=== PATIENT | female | born 1990 | race Caucasian/White ===

== ENCOUNTER → 2016-12-14 | Outpatient (REF) | payer BC | END | disposition home or self-care (01) | LOC: M SFHCLERA 16:53 | PROVIDERS: ATTEND Physician Assistant Medical | DX: J02.9 Acute pharyngitis, unspecified (principal) ==

== ENCOUNTER 2018-05-17 18:44 | Emergency (ER) | payer SELFPAY, BC ==
[2018-05-17 19:21] LABS: KETONE, URINE AUTO RFX NEGATIVE (NEGATIVE); MUCUS, URINE RFX SMALL (NEGATIVE); RBC, URINE AUTO RFX TNTC /HPF (0-3); SPECIFIC GRAVITY UR AUTO RFX 1.011 (1.002-1.035); SQUAM EPITHELIAL CELL UR AURFX 1 /HPF (0-6)
[2018-05-17 19:22] LABS: LEUKOCYTE ESTERASE UR AUTO RFX 3+ (NEGATIVE); NITRITE, URINE AUTO RFX POSITIVE (NEGATIVE); WBC, URINE AUTO RFX TNTC /HPF (0-3)
[2018-05-17] MEDS: KETOROLAC 30 MG/ML VIAL (J1885) IV (21:27)
[2018-05-17] MEDS: NS 1,000 ML IV (21:28)
[2018-05-17 21:30] LABS: BASO # 0.1 10^3/uL (0.0-0.2); BASO % 0.3 % (0.0-1.0); EOS % 0.1 % (0.0-3.0); HEMATOCRIT 44.4 % (36.0-47.0); HEMOGLOBIN 14.7 g/dl (12.0-15.5); IMMATURE GRANULOCYTE % 0.3 % (0-3.0); LYMPH # 1.3 10^3/uL (1.5-6.5); LYMPH % 6.4 % (24.0-44.0); MEAN CORPUSCULAR HEMOGLOBIN 29.8 pg (27.0-33.0); MEAN CORPUSCULAR HGB CONC 33.1 g/dl (32.0-36.5); MEAN CORPUSCULAR VOLUME 90.1 fl (80.0-96.0); MONO % 4.8 % (0.0-5.0); NEUTROPHILS # 18.2 10^3/uL (1.8-7.7); NEUTROPHILS % 88.1 % (36.0-66.0); PLATELET COUNT, AUTOMATED 351 10^3/uL (150-450); RED BLOOD COUNT 4.93 10^6/uL (4.00-5.40); RED CELL DISTRIBUTION WIDTH 12.3 % (11.5-14.5); WHITE BLOOD COUNT 20.7 10^3/uL (4.0-10.0)
[2018-05-17 21:44] LABS: CONTROL LINE UCG INT CTR LINE PRESENT; URINE PREG TEST NEGATIVE (NEGATIVE)
[2018-05-17 21:47] LABS: ANION GAP 7 MEQ/L (8-16); BLOOD UREA NITROGEN 11 MG/DL (7-18); CALCIUM LEVEL 9.2 MG/DL (8.5-10.1); CARBON DIOXIDE LEVEL 28 MEQ/L (21-32); CHLORIDE LEVEL 103 MEQ/L (98-107); GLOMERULAR FILTRATION RATE > 60.0 (>60); GLUCOSE, FASTING 87 MG/DL (70-100); POTASSIUM SERUM 3.9 MEQ/L (3.5-5.1); SODIUM LEVEL 138 MEQ/L (136-145)
[2018-05-17 21:50] LABS: LACTIC ACID SEPSIS PROTOCOL 0.8 MMOL/L (0.4-2.0)
[2018-05-17] MEDS: cefTRIAXone SOD 1 GM in D5W MINI-BAG PLUS 50 ML IV (23:12)
== END 2018-05-17 23:38 | disposition home or self-care (01) ==
LOC: M ED 18:44
DX: N10 Acute pyelonephritis (principal); K59.00 Constipation, unspecified; R00.0 Tachycardia, unspecified; R11.0 Nausea; Z87.440 Personal history of urinary (tract) infections
CPT/HCPCS: J0696

== ENCOUNTER 2020-03-10 13:50 | Emergency (ER) | payer OTHER, SELFPAY ==
[~2020-03-10 13:50] MED LIST: CIPR-249 PO; IBUP-1114 PO
[2020-03-10 14:56] LABS: BASO # 0.1 10^3/uL (0.0-0.2); BASO % 0.6 % (0.0-1.0); EOS # 0.1 10^3/uL (0.0-0.5); HEMATOCRIT 41.4 % (36.0-47.0); HEMOGLOBIN 14.4 g/dl (12.0-15.5); LYMPH # 1.9 10^3/uL (1.5-5.0); LYMPH % 24.4 % (24.0-44.0); MEAN CORPUSCULAR HEMOGLOBIN 30.8 pg (27.0-33.0); MEAN CORPUSCULAR HGB CONC 34.8 g/dl (32.0-36.5); MEAN CORPUSCULAR VOLUME 88.5 fl (80.0-96.0); MONO # 0.6 10^3/uL (0.0-0.8); MONO % 7.9 % (0.0-5.0); NEUTROPHILS # 5.2 10^3/uL (1.5-8.5); NEUTROPHILS % 65.8 % (36.0-66.0); PLATELET COUNT, AUTOMATED 407 10^3/uL (150-450); RED BLOOD COUNT 4.68 10^6/uL (4.00-5.40)
[2020-03-10 15:27] LABS: ALBUMIN 4.2 GM/DL (3.2-5.2); ALT/SGPT 19 U/L (12-78); BILIRUBIN,DIRECT 0.1 MG/DL (0.0-0.2); BILIRUBIN,TOTAL 0.5 MG/DL (0.2-1.0); BLOOD UREA NITROGEN 6 MG/DL (7-18); CALCIUM LEVEL 9.1 MG/DL (8.5-10.1); CARBON DIOXIDE LEVEL 29 MEQ/L (21-32); CHLORIDE LEVEL 103 MEQ/L (98-107); CREATININE FOR GFR 0.73 MG/DL (0.55-1.30); GLOMERULAR FILTRATION RATE > 60.0 (>60); GLUCOSE, FASTING 88 MG/DL (70-100); LIPASE 106 U/L (73-393); POTASSIUM SERUM 3.3 MEQ/L (3.5-5.1); SODIUM LEVEL 138 MEQ/L (136-145)
--- NOTE | 2020-03-10 15:30 | REP ---
CHEST, SINGLE VIEW: There is no evidence of acute infiltrate. No pleural effusion is seen. The heart is normal in size. The mediastinal silhouette is unremarkable. The visualized osseous structures are intact. IMPRESSION: No acute pulmonary disease. Electronically Signed by Josh Valentin MD 03/13/2020 12:54 P
--- NOTE | 2020-03-10 17:10 | REP ---
HISTORY: Right upper quadrant pain. COMPARISON: None. Multiple ultrasonographic images of the liver show the hepatic parenchymal echo pattern to be within normal limits. There is no intrahepatic or extrahepatic ductal dilatation. The common bile duct measures 3 mm. Multiple ultrasonographic images of the gallbladder show no abnormalities. The imaged portion of the right kidney and pancreas show them to be within normal limits. IMPRESSION: Unremarkable right upper quadrant ultrasound. Electronically Signed by Cuco Lockhart DO 03/10/2020 05:24 P
[2020-03-10] MEDS ORDERED: ISOVUE-370 76% 100ML VIAL (Q9967) As Ordered ONE (17:11)
--- NOTE | 2020-03-10 17:35 | REPVR ---
PROCEDURE INFORMATION: Exam: CT Angiography Chest With Contrast Exam date and time: 03/10/2020 5:21 PM Age: 30 years old Clinical indication: Chest pain; Other: Pleuritic; Additional info: Right pleuritic chest pain R/O pe TECHNIQUE: Imaging protocol: Computed tomographic angiography of the chest with intravenous contrast. 3D rendering: MIP and/or 3D reconstructed images were created by the technologist. Radiation optimization: All CT scans at this facility use at least one of these dose optimization techniques: automated exposure control; mA and/or kV adjustment per patient size (includes targeted exams where dose is matched to clinical indication); or iterative reconstruction. Contrast material: ISOVUE 370; Contrast volume: 75 ml; Contrast route: IV; COMPARISON: MS Chest, 1 view 03/10/2020 2:01 PM FINDINGS: Pulmonary arteries: Normal. No pulmonary emboli. Aorta: Unremarkable. No aortic aneurysm. No aortic dissection. Lungs: Unremarkable. No consolidation. No masses. Pleural space: Unremarkable. No pneumothorax. No pleural effusion. Heart: Unremarkable. No cardiomegaly. No pericardial effusion. Lymph nodes: Unremarkable. No enlarged lymph nodes. Bones/joints: Unremarkable. No acute fracture. Soft tissues: Unremarkable. IMPRESSION: No pulmonary embolism. Electronically signed by: Justin Gee On 03/10/2020 17:35:27 PM
[2020-03-10 18:03] VITALS: BP 125/71
== END 2020-03-10 18:34 | disposition home or self-care (01) ==
LOC: M ED 13:50
DX: R06.4 Hyperventilation (principal); F41.9 Anxiety disorder, unspecified; R07.89 Other chest pain; R10.9 Unspecified abdominal pain; R05 Cough; R06.02 Shortness of breath; J30.89 Other allergic rhinitis
CPT/HCPCS: 36415; 36600; 71045; 71275; 76705; 80048; 80076; 82803; 83690; 85025; 99284; Q9967

== ENCOUNTER 2020-05-03 16:19 | Emergency (ER) | payer OTHER ==
[~2020-05-03] VITALS: Ht 157.5 cm; Wt 72.1 kg
[2020-05-03] MEDS ORDERED: NS 1,000 ML IV ONE (17:00)
[2020-05-03] MEDS ORDERED: ONDANSETRON 4MG/2ML VIAL IV ONE (17:00)
[2020-05-03] MEDS ORDERED: GI COCKTAIL 50ML BTL(HYOSCYAMINE/MAALOX/LIDOCAINE VISCOUS)(1:3:1) PO ONE (17:00)
[2020-05-03 17:47] LABS: BASO % 0.5 % (0.0-1.0); EOS # 0.1 10^3/uL (0.0-0.5); EOS % 0.9 % (0.0-3.0); HEMATOCRIT 42.5 % (36.0-47.0); HEMOGLOBIN 14.5 g/dl (12.0-15.5); LYMPH # 1.7 10^3/uL (1.5-5.0); LYMPH % 22.4 % (24.0-44.0); MEAN CORPUSCULAR HEMOGLOBIN 30.7 pg (27.0-33.0); MEAN CORPUSCULAR HGB CONC 34.1 g/dl (32.0-36.5); MEAN CORPUSCULAR VOLUME 89.9 fl (80.0-96.0); MONO # 0.6 10^3/uL (0.0-0.8); MONO % 7.2 % (0.0-5.0); NEUTROPHILS # 5.2 10^3/uL (1.5-8.5); NEUTROPHILS % 68.7 % (36.0-66.0); PLATELET COUNT, AUTOMATED 347 10^3/uL (150-450); RED BLOOD COUNT 4.73 10^6/uL (4.00-5.40); WHITE BLOOD COUNT 7.6 10^3/uL (4.0-10.0)
--- NOTE | 2020-05-03 17:51 | REPVR ---
PROCEDURE INFORMATION: Exam: US Abdomen Limited, Right Upper Quadrant Exam date and time: 05/03/2020 5:28 PM Age: 30 years old Clinical indication: Abdominal pain; Epigastric; Additional info: Ruq pain R/O cholecystitis TECHNIQUE: Imaging protocol: Real-time ultrasound of the abdomen with image documentation. Examination was focused on the right upper quadrant. COMPARISON: GALLBLADDER US 03/10/2020 4:23 PM FINDINGS: Liver: The liver appears normal. Gallbladder: The gallbladder is tender to palpation with a positive sonographic Suggs sign. The gallbladder is otherwise normal with a normal gallbladder wall thickness of 2.2 mm. No evidence of cholelithiasis or definite acute cholecystitis. Common bile duct: The common bile duct is normal measuring 3 mm in diameter. Pancreas: The pancreas appears normal. Right kidney: The right kidney measures 10.2 x 4.2 x 3.5 cm. Intraperitoneal space: No significant free fluid seen in the right side abdomen. IMPRESSION: 1. The gallbladder is tender to palpation with a positive sonographic Suggs sign. Otherwise, no interval change since the previous gallbladder ultrasound from 03/10/2020. The gallbladder wall thickness is normal measuring 2.2 mm. No evidence of cholelithiasis or definite acute cholecystitis. 2. No significant free fluid seen in the right side abdomen. Electronically signed by: Hebert Hawthorne On 05/03/2020 17:51:34 PM
[2020-05-03 18:10] LABS: ALBUMIN 4.3 GM/DL (3.2-5.2); BILIRUBIN,DIRECT 0.1 MG/DL (0.0-0.2); BILIRUBIN,TOTAL 0.4 MG/DL (0.2-1.0); TOTAL PROTEIN 7.5 GM/DL (6.4-8.2)
[2020-05-03] MEDS ORDERED: ISOVUE-370 76% 100ML VIAL As Ordered ONE (18:40)
--- NOTE | 2020-05-03 19:10 | REPVR ---
PROCEDURE INFORMATION: Exam: CT Abdomen And Pelvis With Contrast Exam date and time: 05/03/2020 6:47 PM Age: 30 years old Clinical indication: Nausea and vomiting; Abdominal pain; Localized; Upper; Additional info: Upper abd pain x6 days with n/v TECHNIQUE: Imaging protocol: Computed tomography of the abdomen and pelvis with intravenous contrast. Radiation optimization: All CT scans at this facility use at least one of these dose optimization techniques: automated exposure control; mA and/or kV adjustment per patient size (includes targeted exams where dose is matched to clinical indication); or iterative reconstruction. Contrast material: ISOVUE 370; Contrast volume: 100 ml; Contrast route: IV; COMPARISON: CT ABD PELVIS W/O CONTRAST 05/17/2018 9:42 PM FINDINGS: Liver: Normal. No mass. Gallbladder and bile ducts: Normal. No calcified stones. No ductal dilation. Pancreas: Normal. No ductal dilation. Spleen: Normal. No splenomegaly. Adrenals: Normal. No mass. Kidneys and ureters: Normal. No hydronephrosis. Stomach and bowel: Questionable mild acute enteritis. Slightly excessive fluid is seen in the mid to distal small bowel without significant distention or evidence of ileus or bowel obstruction. The fluid can be a normal finding although a mild enteritis is a likely differential diagnosis. The large bowel appears normal. No free intraperitoneal air or fluid. The appendix appears normal, posterior to the cecum and ascending colon on image 74 of series 201. Appendix: No evidence of appendicitis. Vasculature: Unremarkable. No abdominal aortic aneurysm. Lymph nodes: Unremarkable. No enlarged lymph nodes. Bladder: Unremarkable as visualized. Reproductive: Unremarkable as visualized. The uterus and adnexa appear normal. Bones/joints: Unremarkable. No acute fracture. Soft tissues: Unremarkable. IMPRESSION: 1. Questionable mild acute enteritis. Slightly excessive fluid is seen in the mid to distal small bowel without significant distention or evidence of ileus or bowel obstruction. The fluid can be a normal finding although a mild enteritis is a likely differential diagnosis. The large bowel appears normal. No free intraperitoneal air or fluid. 2. The appendix appears normal, posterior to the cecum and ascending colon on image 74 of series 201. Electronically signed by: Hebert Hawthorne On 05/03/2020 19:09:40 PM
--- NOTE | 2020-05-03 19:26 | ECGEPIP ---
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
[2020-05-03] MEDS ORDERED: ONDA4TAB6 PO (20:07)
[2020-05-03] MEDS ORDERED: ALL10TAB2 PO (20:07)
[2020-05-03] MEDS ORDERED: ONDANSETRON 4 MG ORAL DISINTEGRATING TAB PO ONE (20:15)
[2020-05-03 20:23] VITALS: BP 112/77
== END 2020-05-03 20:26 | disposition home or self-care (01) ==
LOC: M ED 16:19
DX: A08.4 Viral intestinal infection, unspecified (principal); J30.2 Other seasonal allergic rhinitis; Z79.899 Other long term (current) drug therapy
CPT/HCPCS: 74177; 76705; 80047; 80076; 81001; 83690; 84702; 85025; 87086; 93005; 96361; 96374; 99284; J2405; Q0162; Q9967

== ENCOUNTER → 2020-09-05 | Outpatient (CLI) | payer OTHER ==
[~2020-09-05] MED LIST changes: +ALL10TAB2 PO; +ONDA4TAB6 PO
[2020-09-05 15:35] LABS: ALBUMIN 4.1 GM/DL (3.2-5.2); ALT/SGPT 20 U/L (12-78); BILIRUBIN,DIRECT < 0.1 MG/DL (0.0-0.2); BILIRUBIN,TOTAL 0.2 MG/DL (0.2-1.0); TOTAL PROTEIN 7.7 GM/DL (6.4-8.2)
[2020-09-08 06:08] LABS: H PYLORI SERUM QUANT IgG ABY 0.12 (0.00-0.79); IGASUB2 78.5 mg/dL (73.2-301.2); IGASUB3 18.1 mg/dL (13.4-97.9); IgA SERUM (part of Subclasses) 91 mg/dL (87-352); TISSUE TRANSGLUTAMINASE IgA <2 U/mL (0-3); UNITSIGA FOR GLIADIN IGA 2 units (0-19); UNITSIGG FOR GLIADIN IGG 2 units (0-19)
== END ==
LOC: M LAB 14:21
PROVIDERS: ATTEND Internal Medicine Gastroenterology
DX: R10.13 Epigastric pain (principal)

== ENCOUNTER → 2021-06-30 | Outpatient (CLI) | payer OTHER ==
--- NOTE | 2021-07-02 18:39 | SLEEPCENT ---
DATE: 06/30/2021 ORDERED BY: NEELAM Sanchez Nocturnal polysomnography was performed for evaluation of sleep physiology in this patient with a history of excessive somnolence and nonrestorative sleep. Seven hours and 36 minutes of data were reviewed. There were 346 minutes of sleep identified. Sleep latency was prolonged at 50.5 minutes. REM latency was mildly prolonged at 127 minutes. Sleep architecture was fair with some mild fragmentation early in the study. There were three REM cycles noted. Overall sleep efficiency was 76.7%. The electrocardiogram showed a sinus-appearing rhythm with an average heart rate of 50 beats per minute. Rate ranged 40-65. EEG showed normal waveforms for wake and sleep. There was only 1 respiratory event identified of 10 seconds in duration or greater for an apnea-hypopnea index of 0.2. Some minor snoring was noted. Arousals from respiratory events occurred 0.5 times per hour. There was some limb activity. Only 1 train of 30 events. Limb movement arousal index was 4.7. Oxygen saturations remained 90%+ throughout the study. IMPRESSION: Normal nocturnal polysomnography. cc: Angela Purcell NP
== END ==
LOC: M SLEEP 20:00
PROVIDERS: ATTEND Nurse Practitioner Family
DX: R06.83 Snoring (principal)

== ENCOUNTER → 2022-05-06 | Outpatient (REF) | payer OTHER ==
[2022-05-06 21:44] LABS: APPEARANCE, URINE HAZY (CLEAR); BACTERIA, URINE AUTO 1+ (NEGATIVE); BILIRUBIN, URINE AUTO NEGATIVE (NEGATIVE); BLOOD, URINE BLOOD 1+ (NEGATIVE); COLOR, URINE YELLOW (YELLOW); GLUCOSE, URINE (UA) AUTO NEGATIVE (NEGATIVE); KETONE, URINE AUTO NEGATIVE (NEGATIVE); LEUKOCYTE ESTERASE, URINE AUTO 2+ (NEGATIVE); MUCUS, URINE SMALL (NEGATIVE); NITRITE, URINE AUTO NEGATIVE (NEGATIVE); PROTEIN, URINE AUTO NEGATIVE (NEGATIVE); RBC, URINE AUTO 4 /HPF (0-3); SPECIFIC GRAVITY URINE AUTO 1.016 (1.002-1.035); SQUAMOUS EPITHELIAL CELL UR AU 3 /HPF (0-6); UROBILINOGEN, URINE AUTO 0.2 mg/dL (0.0-2.0); WBC, URINE AUTO 16 /HPF (0-3)
== END ==
LOC: M LAB REF 21:08
PROVIDERS: ATTEND Physician Assistant Medical
DX: N39.0 Urinary tract infection, site not specified (principal)